=== PATIENT | female | born 1985 | race Caucasian/White ===

== ENCOUNTER → 2016-03-06 | Outpatient (CLI) | payer OTHER | END | disposition home or self-care (01) | LOC: C.PATHSPEC 17:47 | PROVIDERS: ATTEND Obstetrics & Gynecology | DX: N87.0 Mild cervical dysplasia (principal); Z87.410 Personal history of cervical dysplasia ==

== ENCOUNTER → 2016-03-15 | Outpatient (CLI) | payer OTHER ==
[2016-03-18 21:14] LABS: CHLAMYDIA TRACH RNA*** NOT DETECTED (NOT DETECTED); GC (NEIS GONORRHOEAE)RNA** NOT DETECTED (NOT DETECTED)
== END | disposition home or self-care (01) ==
LOC: C.LABSPEC 16:15
PROVIDERS: ATTEND Obstetrics & Gynecology
DX: Z11.3 Encounter for screening for infections with a predominantly sexual mode of transmission (principal)

== ENCOUNTER → 2016-11-08 | Outpatient (CLI) | payer OTHER | END | disposition home or self-care (01) | LOC: C.PAPS 09:55 | PROVIDERS: ATTEND Obstetrics & Gynecology | DX: Z12.4 Encounter for screening for malignant neoplasm of cervix (principal) ==

== ENCOUNTER → 2017-01-22 | Outpatient (CLI) | payer OTHER | END | disposition home or self-care (01) | LOC: C.PATHSPEC 17:36 | PROVIDERS: ATTEND Obstetrics & Gynecology | DX: B07.9 Viral wart, unspecified (principal) ==

== ENCOUNTER 2021-08-05 19:09 | Inpatient (IN) ==
[2021-08-05] MEDS ORDERED: OXYTOCIN 30 UNITS/500 ML BAG IV PRN (19:42)
[2021-08-05] MEDS ORDERED: PENICILLIN G POTASSIUM 6 MU in DEXTROSE 5% 250 ML IV STA (19:42)
[2021-08-05] MEDS ORDERED: fentaNYL citrate 100 MCG/2 ML VIAL ONE (19:47)
[2021-08-05] MEDS ORDERED: SODIUM CHLORIDE 0.9% INJ 10 ML VIAL ONE (19:47)
[2021-08-05] MEDS ORDERED: ePHEDrine sulfate 50 MG/ML AMP ONE (19:47)
[2021-08-05] MEDS ORDERED: BUPIVACAINE 0.25% 30 ML VIAL ONE (19:48)
[2021-08-05] MEDS ORDERED: fentaNYL 2MCG/ML ROPIVACAINE 1.25MG/ML 100 ML BAG EPI ONE (19:48)
[2021-08-05] MEDS: LACTATED RINGER'S 1,000 ML IV PRN (19:50)
[2021-08-05 20:17] LABS: Hematocrit (blood only) 40.2 % (37-47); Mean Corpuscular Hemoglobin 30.6 pg (25-34); Mean Corpuscular Hgb Conc 34.8 g/dL (32-36); Mean Platelet Volume 10.6 fL (7.4-10.4); Platelet Count 213 K/uL (130-400); RDW Coefficient of Variation 13.1 % (11.5-14.5); RDW Standard Deviation 41.8 fL (36.4-46.3); Red Blood Count 4.57 M/uL (4.2-5.4); White Blood Count 15.59 K/uL (4.8-10.8)
[2021-08-05] MEDS ORDERED: ONDANSETRON INJ 2 MG/ML 2 ML VIAL IV PRN ×2 (20:35→20:37)
[2021-08-05] MEDS ORDERED: fentaNYL 2MCG/ML ROPIVACAINE 1.25MG/ML 100 ML BAG EPI PRN (20:37)
[2021-08-05] MEDS ORDERED: diphenhydrAMINE 50 MG/ML VIAL IV PRN (20:37)
[2021-08-05] MEDS ORDERED: NALOXONE HCL 1 MG in SODIUM CHLORIDE 0.9% 1000ML 1,000 ML IV PRN (20:37)
[2021-08-05] MEDS ORDERED: ePHEDrine sulfate 50 MG/ML AMP IV PRN (20:37)
[2021-08-05] MEDS ORDERED: NALOXONE HCL 0.4 MG/1 ML VIAL/CARP IV PRN (20:37)
[2021-08-05] MEDS ORDERED: NALBUPHINE HCL INJ 10 MG/ML AMP IV PRN (20:37)
--- NOTE | 2021-08-05 20:38 | Anesthesiology Consultation ---
Date of Service August 05, 2021 Assessment & Plan ASA ASA2 Proposed Anesthesia Anesthesia Type: Labor Epidural Risk / Benefits Reviewed With: PT / POA / Parent / Guardian, Accepts Plan and Informed Consent Obtained History Height/Weight Height: 5 ft 2 in Weight: 80.286 kg Allergies Allergy/AdvReac Type Severity Reaction Status Date / Time minocycline Allergy Verified 08/03/21 09:32 Medications Home Medications Medication Instructions Recorded Confirmed Last Taken prenat.vits,sigifredo,wkk-[id number]-mnfgq 1 tab PO DAILY 11/23/20 08/05/21 08/05/21 Active Medications Generic Name Dose Route Start Last Admin Trade Name Freq PRN Reason Stop Dose Admin Lactated Ringer's 1,000 mls @ 125 mls/hr 08/05/21 19:42 08/05/21 20:20 Lr IV 08/07/21 19:41 125 mls/hr .Q8H PRN Infusion L&D Protocol Protocol Past Medical History Medical History History of chicken pox Mild cervical dysplasia Exercise / Class Metabolic Activity II 4-5 Yardwork/Stairs/Walk up hill Past Family History Family History Grandmother (Paternal) Colorectal cancer Father Heart disease Sister Endometriosis Jannet's thyroiditis Grandfather (Maternal) Myocardial infarction Grandfather (Paternal) Myocardial infarction Grandmother (Maternal) Thyroid disease Other Dyslipidemia Hypertension Denies family history of Ovarian cancer Breast cancer Past Surgical History Surgical History H/O colposcopy with cervical biopsy 2017 mona 1 History of oral surgery Tooth extraction History of tonsillectomy Past Anesthesia History No Hx of Anesthesia Complications and No Family Hx of Anesthesia Complications History of PONV No Hx of PONV and No Hx of Motion Sickness Social History Smoking Status: Former smoker Hx Alcohol Use: No Hx Substance Use: No Review of Systems denies fever/cough/ colds/ chest pain/ SOB/ FRANCESCA denies FRANCESCA Physical Exam Vital Signs Last Vital Signs Temp 36.4 C L 08/05/21 19:54 Pulse 109 H 08/05/21 20:57 Resp 18 08/05/21 19:54 BP 124/66 08/05/21 20:57 Pulse Ox 100 08/05/21 20:57 ENMT Mouth: no TMJ abnormality and no dentition abnormality Thyromental Distance: > or= 3.5 Finger Breadths Mallampati Class: II Neck neck extension not limited Respiratory normal respiratory effort; no respiratory distress Auscultation: lungs clear to auscultation bilaterally Cardiovascular Rate/Rhythm: regular rate and regular rhythm Neurologic moves all extremities Psychiatric Orientation: alert and oriented x 3 Testing Laboratory Results 08/05/21 20:05
--- NOTE | 2021-08-05 20:47 | History & Physical Report ---
Date of Service August 05, 2021 Assessment & Plan (1) Active labor: Plan: 35 y/o G1 at 39 wga in labor and srom VSS Fetus cat 1 Labor - expectant management GBS +, pcn ordered epidural prn Admission and Anticipated Discharge Date Admission Date: August 05, 2021 History of Present Illness Chief Complaint: Labor Primary Care Provider: Lisa Jamarcus Millan MD 35 y/o G1 at 39 wga presents w/ c/o ctx and LOF. +FM; denies VB. 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 neg cyto/other HPV+ denies hx STIs Allergies Allergy/AdvReac Type Severity Reaction Status Date / Time minocycline Allergy Verified 08/03/21 09:32 Home Medications Medication Instructions Recorded Confirmed Type prenat.vits,sigifredo,hla-htpu-syymc 1 tab PO DAILY 11/23/20 08/05/21 History Patient History Medical History (Updated 08/05/21 @ 20:46 by Sarah Wells MD) History of chicken pox Mild cervical dysplasia Surgical History H/O colposcopy with cervical biopsy History of oral surgery History of tonsillectomy Family History (Updated 12/25/20 @ 09:01 by Zehra Godinez) Grandmother (Paternal) Colorectal cancer Father Heart disease Sister Endometriosis Jannet's thyroiditis Grandfather (Maternal) Myocardial infarction Grandfather (Paternal) Myocardial infarction Grandmother (Maternal) Thyroid disease Other Dyslipidemia Hypertension Denies family history of Ovarian cancer Breast cancer Social History (Updated 12/25/20 @ 09:18 by Zehra Godinez) Smoking Status: Former smoker Hx Alcohol Use: No Hx Substance Use: No Preferred Language: [place] Communication Ability: Effective 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 Other Information That Helps Us Care for You: No Feels Safe at Home: Yes Safety Concerns: Feels Safe At This Time Physical Exam Genitourinary: OB Exam Abdomen: + estimated weight (8-9) OB Exam Monitor Tracing: + external FHT monitor used, + external uterine monitor used (q2-3) and + category I (130/mod/+accel/-decel) 5/100/0, vertex by nursing, grossly ruptured Results & Data ([facility]) Vital Signs (Past 12 Hours) Vital Signs Temp Pulse Resp BP 08/05/21 19:54 97.5 F L 79 18 130/80 Laboratory Results OB Labs: Blood Type B Positive 01/01/21 Antibody Screen NEGATIVE 01/01/21 Hemoglobin 13.4 g/dL (12.0-16.0) 05/25/21 Hematocrit 39.9 % (37-47) 05/25/21 Mean Corpuscular Volume 86.9 fL (80-100) 01/01/21 Platelet Count 366 K/uL (130-400) 01/01/21 Rubella IgG Antibody Immune (Immune) 01/01/21 Rapid Plasma Reagin Nonreactive (Nonreactive) 01/01/21 HIV (1&2) Ab and P24 Ag, 4th Gener Neg (Neg) 01/01/21 Maternal Serum Alpha Fetoprotein 47.6 ng/mL 03/01/21 OB Optional Labs: Chlamydia trachomatis RNA NOT DETECTED (NOT DETECTED) 01/01/21 Neisseria gonorrhoeae RNA NOT DETECTED (NOT DETECTED) 01/01/21 Alpha Fetoprotein Triple Screen SEE NOTE 03/01/21 Labs Reviewed: cf/sma neg smp cfDNA low risk smp msafp neg smp declines 16wk glucola Diagnostic Findings posterior plac Coding Level of Care Code None Diagnoses Active labor
[2021-08-06] MEDS: PENICILLIN G POTASSIUM 3 MU in DEXTROSE 5% 100 ML IV PRN ×3 (00:11→08:39)
[2021-08-06] MEDS: LACTATED RINGER'S 1,000 ML IV PRN ×2 (00:12→08:00)
[2021-08-06] MEDS ORDERED: CITRIC ACID/SODIUM CITRATE 15 ML UDC PO SCH (06:00)
[2021-08-06] MEDS ORDERED: OXYTOCIN 30 UNITS/500 ML BAG IV PRN (07:45)
--- NOTE | 2021-08-06 10:31 | Labor Progress Brief Note ---
Date of Service August 06, 2021 Subjective Patient actively pushing for around an hour, with contractions still only every 3-5min despite use of pitocin. Can feel pressure with contractions and making excellent effort. Assessment & Plan (1) Active labor: Plan: Nullip at 1 hour in second stage with limited progress, but fetus is OP. When I entered the room I also found patient pushing with a sheet wrapped around her knees holding them tightly together. This was a position suggested by her nurse, and was not working well for this particular patient in my opinion. After resuming open-knee pushes there was significantly better descent of the presenting part with the subsequent push. Would recommend titrating pitocin upwards to provide closer contractions and more efficient pushing, open-pelvis pushing positions, and as FHT are category 1 can continue pushing efforts. Patient has good energy and feels able to continue. Admission and Anticipated Discharge Date Admission Date: August 05, 2021 Physical Exam Genitourinary: position feels DOP. Station still 0 to +1 with push FHT Cat 1 Goodell Q3-5 Fluid clear, patient afebrile Pit @ 5 Results & Data ([facility]) Vital Signs (Past 12 Hours) Vital Signs Temp Pulse Resp BP Pulse Ox 08/06/21 10:23 104 H 98 08/06/21 10:18 103 H 97 08/06/21 10:13 107 H 100 08/06/21 10:10 102 H 93 08/06/21 10:08 109 H 76 L 08/06/21 10:05 106 H 90 08/06/21 10:03 100 H 98 08/06/21 09:58 100 H 97 08/06/21 09:57 106 H 80 L 08/06/21 09:56 105 H 120/55 L 08/06/21 09:53 107 H 97 08/06/21 09:51 108 H 81 L 08/06/21 09:48 107 H 96 08/06/21 09:46 107 H 79 L 08/06/21 09:43 100 H 98 08/06/21 09:42 100 H 116/53 L 08/06/21 09:38 117 H 97 08/06/21 09:36 102 H 87 L 08/06/21 09:33 105 H 97 08/06/21 09:28 104 H 97 08/06/21 09:26 123 H 127/69 06/27/22 09:25 130 H 92 08/06/21 09:23 100 H 98 08/06/21 09:18 129 H 100 08/06/21 09:13 113 H 126/60 99 08/06/21 09:08 101 H 99 08/06/21 09:03 117 H 99 08/06/21 09:00 98.4 F 08/06/21 08:58 121 H 100 08/06/21 08:53 122 H 99 08/06/21 08:48 100 H 99 08/06/21 08:43 100 H 99 08/06/21 08:41 102 H 114/57 L 08/06/21 08:38 104 H 100 08/06/21 08:33 102 H 99 08/06/21 08:28 108 H 100 08/06/21 08:27 105 H 102/50 L 90 08/06/21 08:23 105 H 100 08/06/21 08:18 110 H 99 08/06/21 08:13 108 H 98 08/06/21 08:11 105 H 113/56 L 08/06/21 08:08 106 H 99 08/06/21 08:03 95 H 100 08/06/21 07:58 123 H 100 08/06/21 07:53 106 H 100 08/06/21 07:48 103 H 98 08/06/21 07:43 99 H 96 08/06/21 07:42 96 H 105/50 L 08/06/21 07:38 100 H 97 08/06/21 07:33 98 H 96 08/06/21 07:28 98 H 98 08/06/21 07:26 100 H 112/56 L 08/06/21 07:23 103 H 97 08/06/21 07:18 110 H 98 08/06/21 07:13 103 H 97 08/06/21 07:12 103 H 123/73 08/06/21 07:08 104 H 97 08/06/21 07:05 97.9 F 08/06/21 07:03 106 H 99 08/06/21 06:58 102 H 100 08/06/21 06:56 108 H 125/69 08/06/21 06:53 99 H 97 08/06/21 06:48 112 H 97 08/06/21 06:43 101 H 97 08/06/21 06:42 102 H 132/75 08/06/21 06:38 101 H 97 08/06/21 06:33 96 H 99 08/06/21 06:30 101 H 89 L 08/06/21 06:28 106 H 98 08/06/21 06:27 102 H 126/69 08/06/21 06:23 103 H 98 08/06/21 06:18 104 H 97 08/06/21 06:13 99 H 97 08/06/21 06:11 104 H 113/59 L 08/06/21 06:08 103 H 96 08/06/21 06:03 102 H 97 08/06/21 05:58 98 H 99 08/06/21 05:56 108 H 123/64 08/06/21 05:53 111 H 100 08/06/21 05:48 121 H 99 08/06/21 05:43 116 H 98 08/06/21 05:42 111 H 134/104 H 90 08/06/21 05:38 114 H 98 08/06/21 05:33 110 H 99 08/06/21 05:28 103 H 99 08/06/21 05:27 101 H 118/67 08/06/21 05:23 106 H 100 08/06/21 05:18 116 H 100 08/06/21 05:13 109 H 100 08/06/21 05:12 98.1 F 113 H 16 117/72 08/06/21 05:08 104 H 100 08/06/21 05:03 108 H 99 08/06/21 04:58 114 H 99 08/06/21 04:57 108 H 131/60 08/06/21 04:56 121 H 92 08/06/21 04:53 109 H 100 08/06/21 04:48 117 H 100 08/06/21 04:43 116 H 98 08/06/21 04:38 110 H 99 08/06/21 04:33 104 H 99 08/06/21 04:30 18 08/06/21 04:28 107 H 100 08/06/21 04:26 114 H 120/69 08/06/21 04:23 107 H 98 08/06/21 04:18 105 H 98 08/06/21 04:13 110 H 99 08/06/21 04:12 105 H 135/75 0622 04:08 113 H 99 08/06/21 04:03 108 H 100 08/06/21 03:58 108 H 98 08/06/21 03:56 109 H 121/67 08/06/21 03:53 109 H 98 08/06/21 03:48 118 H 98 08/06/21 03:43 108 H 100 08/06/21 03:38 106 H 100 08/06/21 03:33 99 H 98 08/06/21 03:28 103 H 97 08/06/21 03:27 99 H 119/69 08/06/21 03:23 102 H 97 08/06/21 03:18 104 H 97 08/06/21 03:13 94 H 121/71 98 08/06/21 03:08 102 H 97 08/06/21 03:05 97.9 F 16 08/06/21 03:03 98 H 99 08/06/21 02:58 106 H 99 08/06/21 02:56 100 H 124/73 08/06/21 02:53 112 H 99 08/06/21 02:48 103 H 98 08/06/21 02:43 99 H 96 08/06/21 02:42 93 H 117/58 L 08/06/21 02:38 102 H 97 08/06/21 02:33 98 H 95 08/06/21 02:28 100 H 97 08/06/21 02:26 96 H 114/58 L 08/06/21 02:23 101 H 96 08/06/21 02:18 95 H 97 08/06/21 02:13 100 H 96 08/06/21 02:12 95 H 118/58 L 08/06/21 02:08 101 H 95 08/06/21 02:06 101 H 94 08/06/21 02:03 96 H 95 08/06/21 01:58 98 H 97 08/06/21 01:57 93 H 109/55 L 08/06/21 01:53 97 H 96 08/06/21 01:48 100 H 97 08/06/21 01:43 93 H 97 08/06/21 01:42 96 H 114/58 L 08/06/21 01:38 111 H 95 08/06/21 01:33 100 H 96 08/06/21 01:28 96 H 97 08/06/21 01:26 108 H 118/63 08/06/21 01:23 96 H 98 08/06/21 01:18 101 H 97 08/06/21 01:14 109 H 93 08/06/21 01:13 110 H 98 08/06/21 01:11 98.2 F 107 H 16 130/71 08/06/21 01:08 104 H 97 08/06/21 01:05 111 H 94 08/06/21 01:03 110 H 98 08/06/21 00:58 100 H 97 08/06/21 00:57 105 H 131/71 08/06/21 00:53 101 H 97 08/06/21 00:48 100 H 96 08/06/21 00:43 105 H 97 08/06/21 00:41 106 H 127/74 08/06/21 00:38 102 H 97 08/06/21 00:33 106 H 99 08/06/21 00:28 107 H 99 08/06/21 00:27 102 H 130/72 08/06/21 00:23 98 H 99 08/06/21 00:18 102 H 100 08/06/21 00:13 106 H 99 08/06/21 00:12 108 H 126/75 08/06/21 00:08 110 H 98 08/06/21 00:03 101 H 96 08/05/21 23:58 104 H 97 08/05/21 23:57 100 H 125/68 08/05/21 23:53 97 H 97 08/05/21 23:48 97 H 96 08/05/21 23:43 92 H 97 08/05/21 23:42 100 H 127/71 08/05/21 23:38 100 H 97 08/05/21 23:33 98 H 96 08/05/21 23:28 94 H 97 08/05/21 23:26 95 H 119/68 08/05/21 23:23 96 H 98 08/05/21 23:18 92 H 99 08/05/21 23:13 97 H 99 08/05/21 23:12 99 H 123/71 08/05/21 23:08 101 H 99 08/05/21 23:03 98.1 F 98 H 16 99 08/05/21 22:58 103 H 100 08/05/21 22:57 100 H 118/69 08/05/21 22:53 105 H 99 08/05/21 22:48 110 H 99 08/05/21 22:43 100 H 99 08/05/21 22:42 100 H 113/68 08/05/21 22:38 103 H 100 08/05/21 22:33 98 H 99 08/05/21 22:28 97 H 99 08/05/21 22:26 105 H 112/65 Coding Level of Care Code None Diagnoses Active labor
[2021-08-06] MEDS ORDERED: LIDOCAINE 2%/EPINEPHRINE 1:200,000 20 ML SDV ONE (11:34)
[2021-08-06] MEDS ORDERED: ceFAZolin 2000MG 2,000 MG/15 ML SYR IV ONE (11:37)
[2021-08-06] MEDS ORDERED: CITRIC ACID/SODIUM CITRATE 15 ML UDC ONE (11:38)
--- NOTE | 2021-08-06 11:39 | Labor Progress Brief Note ---
Date of Service August 06, 2021 Subjective Comfortable with epidural, feeling pressure with contractions / pushes Assessment & Plan (1) Failure of descent in labor, delivered, current hospitalization: Plan: No downward progress despite 2 hours of good maternal pushing effort. Good FHT. Counseled on options of continued pushing vs convert to . There has been NO descent and I suspect CPD; discussed option to continue though I don't truly think it will change the outcome in the end. Mom and FOB agreeable to at this time. Consent confirmed with line by line review of form. Admission and Anticipated Discharge Date Admission Date: August 05, 2021 Physical Exam Genitourinary: Fetus still OP, 0 to +1 with pushes at most. Pit @ 9 Ruma Q2-5 FHT Cat 1 Results & Data ([facility]) Vital Signs (Past 12 Hours) Vital Signs Temp Pulse Resp BP Pulse Ox 08/06/21 11:33 110 H 98 08/06/21 11:28 107 H 98 08/06/21 11:26 100 H 125/59 L 08/06/21 11:23 109 H 97 08/06/21 11:18 102 H 98 08/06/21 11:13 122 H 99 08/06/21 11:12 98.1 F 100 H 113/54 L 08/06/21 11:08 119 H 97 08/06/21 11:03 102 H 97 08/06/21 10:58 127 H 97 08/06/21 10:57 101 H 114/57 L 08/06/21 10:53 108 H 98 08/06/21 10:48 105 H 97 08/06/21 10:43 109 H 97 08/06/21 10:41 112 H 121/68 08/06/21 10:38 133 H 98 08/06/21 10:33 103 H 99 08/06/21 10:29 102 H 113/53 L 08/06/21 10:28 100 H 97 08/06/21 10:26 118 H 92 08/06/21 10:23 104 H 98 08/06/21 10:18 103 H 97 08/06/21 10:13 107 H 100 08/06/21 10:10 102 H 93 08/06/21 10:08 109 H 76 L 08/06/21 10:05 106 H 90 08/06/21 10:03 100 H 98 08/06/21 09:58 100 H 97 08/06/21 09:57 106 H 80 L 08/06/21 09:56 105 H 120/55 L 08/06/21 09:53 107 H 97 08/06/21 09:51 108 H 81 L 08/06/21 09:48 107 H 96 08/06/21 09:46 107 H 79 L 08/06/21 09:43 100 H 98 08/06/21 09:42 100 H 116/53 L 08/06/21 09:38 117 H 97 08/06/21 09:36 102 H 87 L 08/06/21 09:33 105 H 97 08/06/21 09:28 104 H 97 08/06/21 09:26 123 H 127/69 08/06/21 09:25 130 H 92 08/06/21 09:23 100 H 98 08/06/21 09:18 129 H 100 08/06/21 09:13 113 H 126/60 99 08/06/21 09:08 101 H 99 08/06/21 09:03 117 H 99 08/06/21 09:00 98.4 F 08/06/21 08:58 121 H 100 08/06/21 08:53 122 H 99 08/06/21 08:48 100 H 99 08/06/21 08:43 100 H 99 08/06/21 08:41 102 H 114/57 L 08/06/21 08:38 104 H 100 08/06/21 08:33 102 H 99 08/06/21 08:28 108 H 100 08/06/21 08:27 105 H 102/50 L 90 08/06/21 08:23 105 H 100 08/06/21 08:18 110 H 99 08/06/21 08:13 108 H 98 08/06/21 08:11 105 H 113/56 L 08/06/21 08:08 106 H 99 08/06/21 08:03 95 H 100 08/06/21 07:58 123 H 100 08/06/21 07:53 106 H 100 08/06/21 07:48 103 H 98 08/06/21 07:43 99 H 96 08/06/21 07:42 96 H 105/50 L 08/06/21 07:38 100 H 97 08/06/21 07:33 98 H 96 06/27/22 07:28 98 H 98 08/06/21 07:26 100 H 112/56 L 08/06/21 07:23 103 H 97 08/06/21 07:18 110 H 98 08/06/21 07:13 103 H 97 08/06/21 07:12 103 H 123/73 08/06/21 07:08 104 H 97 08/06/21 07:05 97.9 F 08/06/21 07:03 106 H 99 08/06/21 06:58 102 H 100 08/06/21 06:56 108 H 125/69 08/06/21 06:53 99 H 97 08/06/21 06:48 112 H 97 08/06/21 06:43 101 H 97 08/06/21 06:42 102 H 132/75 08/06/21 06:38 101 H 97 08/06/21 06:33 96 H 99 08/06/21 06:30 101 H 89 L 08/06/21 06:28 106 H 98 08/06/21 06:27 102 H 126/69 08/06/21 06:23 103 H 98 08/06/21 06:18 104 H 97 08/06/21 06:13 99 H 97 08/06/21 06:11 104 H 113/59 L 08/06/21 06:08 103 H 96 08/06/21 06:03 102 H 97 08/06/21 05:58 98 H 99 08/06/21 05:56 108 H 123/64 08/06/21 05:53 111 H 100 08/06/21 05:48 121 H 99 08/06/21 05:43 116 H 98 08/06/21 05:42 111 H 134/104 H 90 08/06/21 05:38 114 H 98 08/06/21 05:33 110 H 99 08/06/21 05:28 103 H 99 08/06/21 05:27 101 H 118/67 08/06/21 05:23 106 H 100 08/06/21 05:18 116 H 100 08/06/21 05:13 109 H 100 08/06/21 05:12 98.1 F 113 H 16 117/72 08/06/21 05:08 104 H 100 08/06/21 05:03 108 H 99 08/06/21 04:58 114 H 99 08/06/21 04:57 108 H 131/60 08/06/21 04:56 121 H 92 08/06/21 04:53 109 H 100 08/06/21 04:48 117 H 100 08/06/21 04:43 116 H 98 08/06/21 04:38 110 H 99 08/06/21 04:33 104 H 99 08/06/21 04:30 18 08/06/21 04:28 107 H 100 08/06/21 04:26 114 H 120/69 08/06/21 04:23 107 H 98 08/06/21 04:18 105 H 98 08/06/21 04:13 110 H 99 08/06/21 04:12 105 H 135/75 08/06/21 04:08 113 H 99 08/06/21 04:03 108 H 100 08/06/21 03:58 108 H 98 08/06/21 03:56 109 H 121/67 08/06/21 03:53 109 H 98 08/06/21 03:48 118 H 98 08/06/21 03:43 108 H 100 08/06/21 03:38 106 H 100 08/06/21 03:33 99 H 98 08/06/21 03:28 103 H 97 08/06/21 03:27 99 H 119/69 08/06/21 03:23 102 H 97 08/06/21 03:18 104 H 97 08/06/21 03:13 94 H 121/71 98 08/06/21 03:08 102 H 97 08/06/21 03:05 97.9 F 16 08/06/21 03:03 98 H 99 08/06/21 02:58 106 H 99 08/06/21 02:56 100 H 124/73 08/06/21 02:53 112 H 99 08/06/21 02:48 103 H 98 08/06/21 02:43 99 H 96 08/06/21 02:42 93 H 117/58 L 08/06/21 02:38 102 H 97 08/06/21 02:33 98 H 95 08/06/21 02:28 100 H 97 08/06/21 02:26 96 H 114/58 L 08/06/21 02:23 101 H 96 08/06/21 02:18 95 H 97 08/06/21 02:13 100 H 96 08/06/21 02:12 95 H 118/58 L 08/06/21 02:08 101 H 95 08/06/21 02:06 101 H 94 08/06/21 02:03 96 H 95 08/06/21 01:58 98 H 97 08/06/21 01:57 93 H 109/55 L 08/06/21 01:53 97 H 96 08/06/21 01:48 100 H 97 08/06/21 01:43 93 H 97 08/06/21 01:42 96 H 114/58 L 08/06/21 01:38 111 H 95 08/06/21 01:33 100 H 96 08/06/21 01:28 96 H 97 08/06/21 01:26 108 H 118/63 08/06/21 01:23 96 H 98 08/06/21 01:18 101 H 97 08/06/21 01:14 109 H 93 08/06/21 01:13 110 H 98 08/06/21 01:11 98.2 F 107 H 16 130/71 08/06/21 01:08 104 H 97 08/06/21 01:05 111 H 94 08/06/21 01:03 110 H 98 08/06/21 00:58 100 H 97 08/06/21 00:57 105 H 131/71 08/06/21 00:53 101 H 97 08/06/21 00:48 100 H 96 08/06/21 00:43 105 H 97 08/06/21 00:41 106 H 127/74 08/06/21 00:38 102 H 97 08/06/21 00:33 106 H 99 08/06/21 00:28 107 H 99 08/06/21 00:27 102 H 130/72 08/06/21 00:23 98 H 99 08/06/21 00:18 102 H 100 08/06/21 00:13 106 H 99 08/06/21 00:12 108 H 126/75 08/06/21 00:08 110 H 98 08/06/21 00:03 101 H 96 08/05/21 23:58 104 H 97 08/05/21 23:57 100 H 125/68 08/05/21 23:53 97 H 97 08/05/21 23:48 97 H 96 06/26/22 23:43 92 H 97 08/05/21 23:42 100 H 127/71 08/05/21 23:38 100 H 97 Coding Level of Care Code None Diagnoses Failure of descent in labor, delivered, current hospitalization O62.2
[2021-08-06] MEDS ORDERED: LACTATED RINGER'S 1,000 ML IV SCH ×2 (11:45→13:02)
[2021-08-06] MEDS ORDERED: diphenhydrAMINE 50 MG/ML VIAL IV PRN (12:12)
[2021-08-06] MEDS ORDERED: NALOXONE HCL 1 MG in SODIUM CHLORIDE 0.9% 1000ML 1,000 ML IV PRN (12:12)
[2021-08-06] MEDS ORDERED: METOCLOPRAMIDE HCL 20 MG in SODIUM CHLORIDE 0.9% 50 ML IV PRN (12:12)
[2021-08-06] MEDS ORDERED: NALOXONE HCL 0.4 MG/1 ML VIAL/CARP IV PRN ×2 (12:12→13:02)
[2021-08-06] MEDS ORDERED: NALBUPHINE HCL INJ 10 MG/ML AMP IV PRN (12:12)
[2021-08-06] MEDS ORDERED: NALOXONE HCL 0.08 MG in SYRINGE 1.8 ML IV PRN (12:12)
[2021-08-06] MEDS ORDERED: PROMETHAZINE HCL 25 MG in SODIUM CHLORIDE 0.9% 50 ML IV PRN (12:12)
[2021-08-06] MEDS ORDERED: LACTATED RINGER'S 500 ML IV PRN (12:12)
[2021-08-06] MEDS ORDERED: HYDROmorphone INJ 0.5 MG/0.5 ML SYR IV PRN (12:12)
[2021-08-06] MEDS ORDERED: ONDANSETRON INJ 2 MG/ML 2 ML VIAL IV PRN ×3 (12:12→13:02)
[2021-08-06] MEDS ORDERED: ePHEDrine sulfate 50 MG/ML AMP IV PRN ×2 (12:12→12:54)
[2021-08-06] MEDS ORDERED: MoRPHine SULFATE PF 1 MG/ML 10 ML AMP/VIAL INT SPINAL ONE (12:12)
[2021-08-06] MEDS ORDERED: SODIUM CHLORIDE 0.9% 1000ML 1,000 ML IV SCH ×2 (12:15→13:02)
[2021-08-06] MEDS ORDERED: NO NARCOTICS OR SEDATIVES SCH (12:15)
--- NOTE | 2021-08-06 12:31 | Operative Report ---
PG Post Operative Report Pre & Post Diagnosis Operation Date: 08/06/21 11:30 Pre-Op Diagnosis: Primary Section for failure to descend. Post-Op Diagnosis: Primary Section for failure to descend. I identified the patient and participated in the time-out.: Yes Procedure Operation Date: 08/06/21 11:30 Actual Procedures Primary Low Transverse Section Surgeon Ava Mcmillan MD Flow Trader CANDIDA Sharif Estimated Blood Loss 600 Findings Consistent with Post-Op Diagnosis Specimens Placenta, Cord blood Anesthesia Type Spinal Complications none Disposition Accompanied Patient To Recovery: Yes Disposition: L&D Description of Procedure The patient was placed operating table in the supine position with a leftward tilt. She was prepped and draped in standard sterile fashion. The anesthetic was tested and found to be adequate. A time-out was held, identifying correct patient, procedure, positioning and preoperative antibiotics. There were no concerns. A Pfannenstiel skin incision was made with a knife and taken down to the underlying layer of fascia. The fascia was incised in the midline with the knife and taken out laterally with scissors. The superior edge of the fascial incision was grasped, elevated and dissected off the underlying rectus both superiorly and inferiorly. The muscles were bluntly in the midline. The peritoneum was entered bluntly. The incision was then stretched. The bladder retractor was placed. The vesicouterine peritoneum was identified, entered with scissors and taken out laterally with scissors. The bladder flap was created digitally. A hysterotomy incision was created transversely in the lower uterine segment, final entry being accomplished in a blunt manner with the boom pump operator's fingers. Clear amniotic fluid was encountered. The boom pump operator's hand was used to elevate the head to the hysterotomy. The head was delivered using mild fundal pressure, and the shoulders and body followed without difficulty. The cord was clamped and cut and the was then handed off to the awaiting gerontological nurse practitioner. Cord blood was obtained. The placenta was Manually extracted. The uterus was exteriorized and cleared of all clot and debris with moistened laparotomy sponges. The hysterotomy incision was repaired in two layers, the first in a running locked layer, the second in an imbricating layer. The ovaries and tubes were seen to be normal bilaterally. The uterus was gently replaced in the abdomen, and the gutters were cleared of clot and debris. A final inspection of the hysterotomy revealed good hemostasis. The rectus muscles were allowed to reapproximate naturally. The fascia was then reapproximated with 1 Vicryl in a running nonlocked manner. The fascia was examined and found to be free of defect following closure. The subcutaneous tissue was copiously irrigated and reapproximated with 0-chromic, then the skin edges were closed with 4-0 monocryl in a subcuticular fashion. A dermabond dressing was applied. The michelle was found to be draining clear yellow urine at completion of the procedure. I attest to the content of the Intraoperative Record and any orders documented therein. Any exceptions are noted below. I attest to the content of the Intraoperative Record and any orders documented therein. Any exceptions are noted below. OB Procedure Charges [id number]
[2021-08-06] MEDS ORDERED: PROMETHAZINE HCL 12.5 MG in SODIUM CHLORIDE 0.9% 50 ML IV PRN (12:54)
[2021-08-06] MEDS ORDERED: METOCLOPRAMIDE HCL INJ 5 MG/ML 2 ML VIAL IV PRN (12:54)
[2021-08-06] MEDS ORDERED: ATROPINE SULFATE 0.1 MG/ML 10ML SYR IV PRN (12:54)
[2021-08-06] MEDS ORDERED: HYDROmorphone INJ 2 MG/ML SYR/VIAL IV PRN (12:54)
[2021-08-06] MEDS ORDERED: HYDROCORTISONE ACETATE 25 MG SUPP PR PRN (13:02)
[2021-08-06] MEDS ORDERED: OXYTOCIN 30 UNITS in LACTATED RINGER'S 1,000 ML IV SCH (13:02)
[2021-08-06] MEDS ORDERED: PHENYLEPHRINE HCL 10 MG/ML VIAL ONE (13:02)
[2021-08-06] MEDS ORDERED: HYDROmorphone Bolus from PCA IV STA (13:02)
[2021-08-06] MEDS ORDERED: DIPHTHERIA/TETANUS/PERTUSSIS 0.5 ML SYR/VIAL IM ONE (13:02)
[2021-08-06] MEDS ORDERED: OXYTOCIN 10 UNITS/ML 10ML VIAL ONE (13:02)
[2021-08-06] MEDS ORDERED: BENZOCAINE 20% AER SPR 82.5 GM CAN EXT PRN (13:02)
[2021-08-06] MEDS ORDERED: ePHEDrine sulfate 50 MG/ML AMP ONE (13:02)
[2021-08-06] MEDS ORDERED: MAGNESIUM HYDROXIDE SUSP 30 ML UDC PO PRN (13:02)
[2021-08-06] MEDS ORDERED: SENNA 8.6 MG TAB PO PRN (13:02)
[2021-08-06] MEDS: HYDROmorphone PCA 30 MG/30 ML IV PRN ×2 (13:35→15:25)
--- NOTE | 2021-08-06 15:44 | Anesthesiology Progress Note ---
Date of Service August 06, 2021 Anesthesia Post Procedure Vital Signs Vital Signs: Temp Pulse Resp BP Pulse Ox 08/06/21 15:00 100 H 100 08/06/21 14:55 99 H 99 08/06/21 14:50 98 H 100 08/06/21 14:45 93 H 100 08/06/21 14:42 96 H 118/63 08/06/21 14:40 97 H 99 08/06/21 14:38 36.4 C L 96 H 118/63 08/06/21 14:35 97 H 99 08/06/21 14:30 98 H 99 08/06/21 14:25 92 H 100 08/06/21 14:20 91 H 100 08/06/21 14:15 96 H 100 08/06/21 14:12 96 H 118/65 08/06/21 14:10 94 H 100 08/06/21 14:05 93 H 100 08/06/21 14:00 91 H 99 08/06/21 13:55 90 99 08/06/21 13:50 98 H 98 08/06/21 13:45 103 H 96 08/06/21 13:40 106 H 96 08/06/21 13:38 36.5 C 103 H 112/60 96 08/06/21 13:35 99 H 96 08/06/21 13:30 104 H 96 08/06/21 13:28 111 H 113/66 08/06/21 13:25 102 H 95 08/06/21 13:20 105 H 96 08/06/21 13:18 96 H 113/61 08/06/21 13:15 109 H 96 08/06/21 13:10 110 H 96 08/06/21 13:08 111 H 20 106/60 08/06/21 13:05 113 H 96 08/06/21 13:00 105 H 96 08/06/21 12:58 103 H 18 95/53 L 08/06/21 12:56 108 H 93/46 L 08/06/21 12:55 109 H 96 08/06/21 12:50 105 H 97 08/06/21 12:48 18 08/06/21 12:45 97 H 96 08/06/21 12:42 97 H 99/48 L 08/06/21 12:40 105 H 96 08/06/21 12:38 36.5 C 103 H 18 157/104 H 08/06/21 11:33 110 H 98 08/06/21 11:28 107 H 98 08/06/21 11:26 100 H 125/59 L 08/06/21 11:23 109 H 97 08/06/21 11:18 102 H 98 08/06/21 11:13 122 H 99 08/06/21 11:12 36.7 C 100 H 113/54 L 08/06/21 11:08 119 H 97 08/06/21 11:03 102 H 97 08/06/21 10:58 127 H 97 08/06/21 10:57 101 H 114/57 L 08/06/21 10:53 108 H 98 08/06/21 10:48 105 H 97 08/06/21 10:43 109 H 97 08/06/21 10:41 112 H 121/68 08/06/21 10:38 133 H 98 08/06/21 10:33 103 H 99 08/06/21 10:29 102 H 113/53 L 08/06/21 10:28 100 H 97 08/06/21 10:26 118 H 92 08/06/21 10:23 104 H 98 08/06/21 10:18 103 H 97 08/06/21 10:13 107 H 100 08/06/21 10:10 102 H 93 08/06/21 10:08 109 H 76 L 08/06/21 10:05 106 H 90 08/06/21 10:03 100 H 98 08/06/21 09:58 100 H 97 08/06/21 09:57 106 H 80 L 08/06/21 09:56 105 H 120/55 L 08/06/21 09:53 107 H 97 08/06/21 09:51 108 H 81 L 08/06/21 09:48 107 H 96 08/06/21 09:46 107 H 79 L 08/06/21 09:43 100 H 98 08/06/21 09:42 100 H 116/53 L 08/06/21 09:38 117 H 97 08/06/21 09:36 102 H 87 L 08/06/21 09:33 105 H 97 08/06/21 09:28 104 H 97 08/06/21 09:26 123 H 127/69 08/06/21 09:25 130 H 92 08/06/21 09:23 100 H 98 08/06/21 09:18 129 H 100 08/06/21 09:13 113 H 126/60 99 08/06/21 09:08 101 H 99 08/06/21 09:03 117 H 99 08/06/21 09:00 36.9 C 08/06/21 08:58 121 H 100 08/06/21 08:53 122 H 99 08/06/21 08:48 100 H 99 08/06/21 08:43 100 H 99 08/06/21 08:41 102 H 114/57 L 08/06/21 08:38 104 H 100 08/06/21 08:33 102 H 99 08/06/21 08:28 108 H 100 08/06/21 08:27 105 H 102/50 L 90 08/06/21 08:23 105 H 100 08/06/21 08:18 110 H 99 08/06/21 08:13 108 H 98 08/06/21 08:11 105 H 113/56 L 08/06/21 08:08 106 H 99 08/06/21 08:03 95 H 100 08/06/21 07:58 123 H 100 08/06/21 07:53 106 H 100 08/06/21 07:48 103 H 98 08/06/21 07:43 99 H 96 08/06/21 07:42 96 H 105/50 L 08/06/21 07:38 100 H 97 08/06/21 07:33 98 H 96 08/06/21 07:28 98 H 98 08/06/21 07:26 100 H 112/56 L 08/06/21 07:23 103 H 97 08/06/21 07:18 110 H 98 08/06/21 07:13 103 H 97 08/06/21 07:12 103 H 123/73 08/06/21 07:08 104 H 97 08/06/21 07:05 36.6 C 08/06/21 07:03 106 H 99 08/06/21 06:58 102 H 100 08/06/21 06:56 108 H 125/69 08/06/21 06:53 99 H 97 08/06/21 06:48 112 H 97 08/06/21 06:43 101 H 97 08/06/21 06:42 102 H 132/75 08/06/21 06:38 101 H 97 08/06/21 06:33 96 H 99 08/06/21 06:30 101 H 89 L 08/06/21 06:28 106 H 98 08/06/21 06:27 102 H 126/69 08/06/21 06:23 103 H 98 08/06/21 06:18 104 H 97 08/06/21 06:13 99 H 97 08/06/21 06:11 104 H 113/59 L 08/06/21 06:08 103 H 96 08/06/21 06:03 102 H 97 08/06/21 05:58 98 H 99 08/06/21 05:56 108 H 123/64 08/06/21 05:53 111 H 100 08/06/21 05:48 121 H 99 08/06/21 05:43 116 H 98 08/06/21 05:42 111 H 134/104 H 90 08/06/21 05:38 114 H 98 08/06/21 05:33 110 H 99 08/06/21 05:28 103 H 99 08/06/21 05:27 101 H 118/67 08/06/21 05:23 106 H 100 08/06/21 05:18 116 H 100 08/06/21 05:13 109 H 100 08/06/21 05:12 36.7 C 113 H 16 117/72 08/06/21 05:08 104 H 100 08/06/21 05:03 108 H 99 08/06/21 04:58 114 H 99 08/06/21 04:57 108 H 131/60 08/06/21 04:56 121 H 92 08/06/21 04:53 109 H 100 08/06/21 04:48 117 H 100 08/06/21 04:43 116 H 98 08/06/21 04:38 110 H 99 08/06/21 04:33 104 H 99 08/06/21 04:30 18 08/06/21 04:28 107 H 100 08/06/21 04:26 114 H 120/69 08/06/21 04:23 107 H 98 08/06/21 04:18 105 H 98 08/06/21 04:13 110 H 99 08/06/21 04:12 105 H 135/75 08/06/21 04:08 113 H 99 08/06/21 04:03 108 H 100 08/06/21 03:58 108 H 98 08/06/21 03:56 109 H 121/67 08/06/21 03:53 109 H 98 08/06/21 03:48 118 H 98 08/06/21 03:43 108 H 100 08/06/21 03:38 106 H 100 08/06/21 03:33 99 H 98 08/06/21 03:28 103 H 97 08/06/21 03:27 99 H 119/69 08/06/21 03:23 102 H 97 08/06/21 03:18 104 H 97 08/06/21 03:13 94 H 121/71 98 08/06/21 03:08 102 H 97 08/06/21 03:05 36.6 C 16 08/06/21 03:03 98 H 99 08/06/21 02:58 106 H 99 08/06/21 02:56 100 H 124/73 08/06/21 02:53 112 H 99 08/06/21 02:48 103 H 98 08/06/21 02:43 99 H 96 08/06/21 02:42 93 H 117/58 L 08/06/21 02:38 102 H 97 08/06/21 02:33 98 H 95 08/06/21 02:28 100 H 97 08/06/21 02:26 96 H 114/58 L 08/06/21 02:23 101 H 96 08/06/21 02:18 95 H 97 08/06/21 02:13 100 H 96 08/06/21 02:12 95 H 118/58 L 08/06/21 02:08 101 H 95 08/06/21 02:06 101 H 94 08/06/21 02:03 96 H 95 08/06/21 01:58 98 H 97 08/06/21 01:57 93 H 109/55 L 08/06/21 01:53 97 H 96 08/06/21 01:48 100 H 97 08/06/21 01:43 93 H 97 08/06/21 01:42 96 H 114/58 L 08/06/21 01:38 111 H 95 08/06/21 01:33 100 H 96 08/06/21 01:28 96 H 97 08/06/21 01:26 108 H 118/63 0622 01:23 96 H 98 08/06/21 01:18 101 H 97 08/06/21 01:14 109 H 93 08/06/21 01:13 110 H 98 08/06/21 01:11 36.8 C 107 H 16 130/71 08/06/21 01:08 104 H 97 08/06/21 01:05 111 H 94 08/06/21 01:03 110 H 98 08/06/21 00:58 100 H 97 08/06/21 00:57 105 H 131/71 08/06/21 00:53 101 H 97 08/06/21 00:48 100 H 96 08/06/21 00:43 105 H 97 08/06/21 00:41 106 H 127/74 08/06/21 00:38 102 H 97 08/06/21 00:33 106 H 99 08/06/21 00:28 107 H 99 08/06/21 00:27 102 H 130/72 08/06/21 00:23 98 H 99 08/06/21 00:18 102 H 100 08/06/21 00:13 106 H 99 08/06/21 00:12 108 H 126/75 08/06/21 00:08 110 H 98 08/06/21 00:03 101 H 96 08/05/21 23:58 104 H 97 08/05/21 23:57 100 H 125/68 08/05/21 23:53 97 H 97 08/05/21 23:48 97 H 96 08/05/21 23:43 92 H 97 08/05/21 23:42 100 H 127/71 08/05/21 23:38 100 H 97 08/05/21 23:33 98 H 96 08/05/21 23:28 94 H 97 08/05/21 23:26 95 H 119/68 08/05/21 23:23 96 H 98 08/05/21 23:18 92 H 99 08/05/21 23:13 97 H 99 08/05/21 23:12 99 H 123/71 08/05/21 23:08 101 H 99 08/05/21 23:03 36.7 C 98 H 16 99 08/05/21 22:58 103 H 100 08/05/21 22:57 100 H 118/69 08/05/21 22:53 105 H 99 06/26/22 22:48 110 H 99 08/05/21 22:43 100 H 99 08/05/21 22:42 100 H 113/68 08/05/21 22:38 103 H 100 08/05/21 22:33 98 H 99 08/05/21 22:28 97 H 99 08/05/21 22:26 105 H 112/65 08/05/21 22:23 101 H 99 08/05/21 22:18 94 H 100 08/05/21 22:13 110 H 117/65 100 08/05/21 22:07 115 H 100 08/05/21 22:02 99 H 99 08/05/21 21:57 102 H 115/61 100 08/05/21 21:52 99 H 100 08/05/21 21:47 97 H 100 08/05/21 21:42 91 H 114/64 100 08/05/21 21:37 100 H 100 08/05/21 21:32 106 H 100 08/05/21 21:29 115 H 92 08/05/21 21:27 110 H 100 08/05/21 21:26 122 H 128/65 08/05/21 21:24 114 H 111/71 08/05/21 21:22 116 H 100 08/05/21 21:21 99 H 97/52 L 08/05/21 21:19 95 H 105/59 L 08/05/21 21:17 93 H 105/61 100 08/05/21 21:15 92 H 106/61 08/05/21 21:13 98 H 106/58 L 08/05/21 21:12 92 H 100 08/05/21 21:11 98 H 107/57 L 08/05/21 21:09 96 H 105/59 L 08/05/21 21:07 93 H 108/54 L 100 08/05/21 21:06 114 H 110/57 L 08/05/21 21:04 118 H 84 L 08/05/21 21:02 113 H 100 08/05/21 21:01 125 H 135/61 08/05/21 20:59 117 H 127/67 08/05/21 20:57 109 H 124/66 100 08/05/21 20:55 106 H 123/78 08/05/21 20:53 90 128/81 08/05/21 20:52 102 H 99 08/05/21 20:50 96 H 92 08/05/21 20:47 93 H 98 08/05/21 20:42 105 H 98 08/05/21 19:54 36.4 C L 79 18 130/80 Pain Intensity Bilateral Lower Abdomen: Pain Intensity: 8 Transfer of Care Handoff Completed per policy Notes Mental Status: alert / awake / arousable and participated in evaluation Patient Amnestic to Procedure: Yes Nausea / Vomiting: adequately controlled Pain: adequately controlled Airway Patency, RR, SpO2: stable & adequate BP & HR: stable & adequate Hydration State: stable & adequate Neuraxial Anesthesia: was administered and sensory block is resolving Anesthetic Complications: no major complications apparent
[2021-08-06] MEDS: SIMETHICONE 80 MG CHEW PO SCH ×4 (17:40→20:41)
[2021-08-06] MEDS: DOCUSATE SODIUM 100 MG CAP PO SCH (20:40)
--- NOTE | 2021-08-07 05:25 | Obstetrical Progress Note ---
Date of Service August 07, 2021 Assessment & Plan Admission and Anticipated Discharge Date Admission Date: August 05, 2021 Results & Data ([facility]) Vital Signs (Past 12 Hours) Vital Signs Temp Pulse Resp BP Pulse Ox 08/07/21 03:30 36.6 C 93 H 16 116/71 97 08/07/21 00:00 36.8 C 90 18 115/68 96 08/06/21 22:00 20 100 08/06/21 21:00 18 99 08/06/21 20:00 20 100 08/06/21 19:30 36.8 C 94 H 20 119/74 99 08/06/21 19:10 18 100 08/06/21 17:40 18 100
[2021-08-07] MEDS ORDERED: diphenhydrAMINE 50 MG/ML VIAL IV PRN (06:12)
[2021-08-07] MEDS ORDERED: diphenhydrAMINE Capsule 25 MG CAP PO PRN (06:12)
[2021-08-07] MEDS ORDERED: DC INTRASPINAL MORPHINE SCH (06:12)
[2021-08-07] MEDS ORDERED: KETOROLAC 30 MG/ML VIAL IV PRN (06:12)
[2021-08-07] MEDS ORDERED: PROMETHAZINE HCL 25 MG in SODIUM CHLORIDE 0.9% 50 ML IV PRN (06:13)
[2021-08-07 07:03] LABS: Basophils # (auto) 0.02 K/uL (0-0.2); Basophils % (auto) 0.1 %; Eosinophils # (auto) 0.22 K/uL (0-0.5); Eosinophils % (auto) 1.6 %; Hematocrit (blood only) 35.7 % (37-47); Hemoglobin 11.9 g/dL (12.0-16.0); Immature Granulocytes # (auto) 0.07 K/uL (0.00-0.02); Immature Granulocytes % (auto) 0.5 %; Lymphocytes # (auto) 1.29 K/uL (1.2-3.4); Lymphocytes % (auto) 9.1 %; Mean Corpuscular Hemoglobin 29.1 pg (25-34); Mean Corpuscular Hgb Conc 33.3 g/dL (32-36); Mean Corpuscular Volume 87.3 fL (80-100); Mean Platelet Volume 10.7 fL (7.4-10.4); Monocytes # (auto) 0.92 K/uL (0.11-0.59); Monocytes % (auto) 6.5 %; Neutrophils # (auto) 11.62 K/uL (1.4-6.5); Neutrophils % (auto) 82.2 %; Platelet Count 175 K/uL (130-400); RDW Coefficient of Variation 13.5 % (11.5-14.5); RDW Standard Deviation 42.7 fL (36.4-46.3); Red Blood Count 4.09 M/uL (4.2-5.4); White Blood Count 14.14 K/uL (4.8-10.8)
[2021-08-07] MEDS ORDERED: MEPERIDINE HCL 50 MG/ML CARP IV PRN (07:51)
--- NOTE | 2021-08-07 08:01 | Obstetrical Progress Note ---
Date of Service August 07, 2021 Assessment & Plan (1) Encounter for care and examination after delivery: Plan: Patient is a 35-year-old now female who delivered via at 39 weeks gestation, postoperative day 1. -Continue routine care, will keep today -Pain not adequately controlled, will transition Dilaudid VEHICLE ASSEMBLY INSPECTOR to pushed medication by nursing as needed. -GBS positive but was treated with penicillin, B+, antibody negative, rubella immune -Hemoglobin 11.9 today -Voiding trial later today -Encouraged ambulation for after Rea catheter is removed -Encourage breast-feeding -Follow-up in [address] Mcmillan Admission and Anticipated Discharge Date Admission Date: August 05, 2021 Supervising Physician Co-Signing Physician Notes Resident Physician Supervision Note: I interviewed and examined the patient. Discussed with Dr. Medina and agree with findings and plan as documented in the note. Any exceptions or clarifications are listed here: As above, patient did not receive duramorph and was given Dilaudid VEHICLE ASSEMBLY INSPECTOR. C/O inadequate pain control overnight. Will transition off VEHICLE ASSEMBLY INSPECTOR to our typical post- pain management regimen including IV and PO narcotic options to be used as needed. Documented By: Ava Mcmillan MD, FACOG Subjective Patient is a 35-year-old now female who delivered via at 39 weeks gestation, postoperative day 1. Patient does seem uncomfortable today, unfortunately Duramorph was not given to the patient when epidural was in place. Because of this patient was put on a VEHICLE ASSEMBLY INSPECTOR with Dilaudid. Patient utilizing as frequently as she is able to. Patient still experiencing 7-8 out of 10 pain. Otherwise the patient is powering through it and breast-feeding to the best of her ability reports is overall going well and baby is latching well. Rea catheter in place and is having good urine output. No ambulation at this time due to Rea catheter but because Duramorph was not given it does not necessarily need to be in place as of right now. Otherwise patient tolerating oral intake without nausea/vomiting. Patient denies fever, chills, chest pain, shortness of breath, nausea, vomiting, or headaches at this time. No other complaints, just would like better pain control. Review of Systems Review of Systems: All systems reviewed & are unremarkable except as noted in HPI & below Physical Exam Constitutional: WD/WN, vitals as above Eyes: + anicteric sclerae Neck: normal visual inspection Respiratory: normal respiratory effort, lungs clear to auscultation Cardiovascular: RRR, no murmur, no edema Gastrointestinal (Abdomen): Inspection/Auscultation: abdomen normal to inspection Percussion/Palpation: + abdomen tender and abdomen soft Musculoskeletal: Head/Neck/Chest: head atraumatic Skin: + rash (diffuse on abdomen) Neurologic: moves all extremities Psychiatric: A+Ox3, euthymic affect Genitourinary: Uterine fundus palpated at the level of the umbilicus, firm Results & Data ([facility]) Vital Signs (Past 12 Hours) Vital Signs Temp Pulse Resp BP Pulse Ox 08/07/21 03:30 36.6 C 93 H 16 116/71 97 08/07/21 00:00 36.8 C 90 18 115/68 96 08/06/21 22:00 20 100 08/06/21 21:00 18 99 08/06/21 20:00 20 100
[2021-08-07] MEDS: SIMETHICONE 80 MG CHEW PO SCH ×4 (08:12→20:58)
[2021-08-07] MEDS: PRENATAL VITAMIN 1 TAB PO SCH (08:12)
[2021-08-07] MEDS: FERROUS SULFATE 325 MG TAB PO SCH (08:12)
[2021-08-07] MEDS: DOCUSATE SODIUM 100 MG CAP PO SCH ×2 (08:12→20:58)
[2021-08-07] MEDS: IBUPROFEN 600 MG TAB PO PRN ×3 (09:32→18:53)
[2021-08-07] MEDS: oxyCODONE/ACETAMINOPHEN 5mg/325mg TAB PO PRN ×2 (09:32→18:54)
[2021-08-08] MEDS: oxyCODONE/ACETAMINOPHEN 5mg/325mg TAB PO PRN ×2 (04:40→08:25)
[2021-08-08] MEDS: IBUPROFEN 600 MG TAB PO PRN ×4 (04:41→17:23)
--- NOTE | 2021-08-08 07:05 | Obstetrical Progress Note ---
Date of Service August 08, 2021 Assessment & Plan (1) Encounter for care and examination after delivery: stable, routine care. rh pos, ri, breast feeding. hgb pending. Day #:: 2 Subjective Ambulation: ambulating normally Voiding: no voiding problems Passing Gas:: Yes Diet Tolerance:: regular diet Lochia:: Small Feeding Type:: breast feeding having rash, bilateral lower back and back of arms and quite itchy. no pain issues. Constitutional: + as per Subjective / HPI Physical Exam Constitutional WD/WN, vitals as above Respiratory normal respiratory effort, lungs clear to auscultation Cardiovascular Rate/Rhythm: regular rate and regular rhythm Gastrointestinal (Abdomen) Inspection/Auscultation: abdomen normal to inspection Percussion/Palpation: abdomen soft Fundus firm 1cm down Musculoskeletal nt calves no edema Neurologic grossly normal Psychiatric A+Ox3, euthymic affect Results & Data ([facility]) Vital Signs (Past 12 Hours) Vital Signs Temp Pulse Resp BP 08/08/21 04:00 98.4 F 89 18 116/77 08/08/21 00:00 98.4 F 74 18 114/73 08/07/21 20:00 97.7 F 85 18 119/76
[2021-08-08 07:51] LABS: Hematocrit (blood only) 34.2 % (37-47); Hemoglobin 11.5 g/dL (12.0-16.0)
[2021-08-08] MEDS: PRENATAL VITAMIN 1 TAB PO SCH (08:24)
[2021-08-08] MEDS: DOCUSATE SODIUM 100 MG CAP PO SCH ×2 (08:24→20:46)
[2021-08-08] MEDS: FERROUS SULFATE 325 MG TAB PO SCH (08:24)
[2021-08-08] MEDS: SIMETHICONE 80 MG CHEW PO SCH ×4 (08:26→20:46)
[2021-08-08] MEDS: TRIAMCINOLONE ACET 0.5% CR 15 GM TUBE EXT PRN ×2 (11:46→16:48)
[2021-08-09] MEDS: IBUPROFEN 600 MG TAB PO PRN (06:10)
--- NOTE | 2021-08-09 08:23 | Obstetrical Progress Note ---
Date of Service August 09, 2021 Assessment & Plan (1) Encounter for care and examination after delivery: Day 3 s/p LTCS doing well. Stable for discharge. Subjective Ambulation: ambulating normally Voiding: no voiding problems Passing Gas:: Yes Diet Tolerance:: regular diet Lochia:: Moderate Feeding Type:: breast feeding Physical Exam Constitutional WD/WN, vitals as above Respiratory normal respiratory effort; no respiratory distress and no labored breathing Gastrointestinal (Abdomen) Inspection/Auscultation: abdomen normal to inspection; abdomen not distended Percussion/Palpation: abdomen soft; abdomen nontender, no guarding and abdomen not rigid Incision C/D/I Genitourinary OB Exam Abdomen: + fundal height Fundus: + firm and + relation to umbilicus (Below); not tender or not boggy Results & Data ([facility]) Vital Signs (Past 12 Hours) Vital Signs Temp Pulse Resp BP Pulse Ox 08/09/21 08:00 36.9 C 95 H 20 128/88 98 08/09/21 07:00 36.9 C 81 15 125/82 98 08/08/21 23:30 36.7 C 76 18 121/76 97
[2021-08-09] MEDS: DOCUSATE SODIUM 100 MG CAP PO SCH (09:08)
[2021-08-09] MEDS: FERROUS SULFATE 325 MG TAB PO SCH (09:08)
[2021-08-09] MEDS: PRENATAL VITAMIN 1 TAB PO SCH (09:08)
[2021-08-09] MEDS: SIMETHICONE 80 MG CHEW PO SCH (09:08)
--- NOTE | 2021-08-10 13:39 | Discharge Summary ---
Date of Service August 10, 2021 Admission HPI Per Admitting Provider 35 y/o G1 at 39 wga presents w/ c/o ctx and LOF. +FM; denies VB. 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 Discharged home in goo d condition on POD#3 with usual plans for post op follow up in office. Coding Level of Care Code None Diagnoses Failure of descent in labor, delivered, current hospitalization O62.2
== END 2021-08-09 11:25 | disposition home or self-care (01) | DRG 788 ==
LOC: OPB 19:09 → 4S1 19:12 → 4E2 08-06 15:48

== ENCOUNTER 2023-02-14 06:59 | Inpatient (IN) ==
--- NOTE | 2023-02-05 10:13 | Anesthesiology Consultation ---
Date of Service February 05, 2023 Assessment & Plan (1) Encounter for pre-operative examination: - epidural 08/05/21 L3-L4 1 attempt. - Per patient assessment coordinator on 02/05/2023: No known infectious disease contacts, current infectious disease symptoms in past 10 days or COVID positive test result in the past 30 days. 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 Surgery Operation Date: 02/14/23 08:50 Proposed Procedures p Section (Delivery of Baby Through Abdominal Incision) - Aav Mcmillan MD s with Bilateral Tubal Ligation - Ava Mcmillan MD Height/Weight Height: 5 ft 2 in Weight: 81.647 kg Allergies Allergy/AdvReac Type Severity Reaction Status Date / Time minocycline Allergy Unknown Verified 02/05/23 09:34 Medications Home Medications Medication Instructions Recorded Confirmed Last Taken prenat.vits,sigifredo,[id number] 1 tab PO QAM 11/23/20 02/05/23 08/05/21 RSV vac, preF A and preF B(PF) 120 0.5 ml IM ONCE #1 ea 12/31/22 01/27/23 Unknown mcg/0.5 mL IM solution (Abrysvo) Past Medical History Medical History Hypercholesteremia History of chicken pox Pap smear of cervix shows high risk HPV present Mild cervical dysplasia Past Family History Family History Grandmother (Paternal) Colorectal cancer Father Heart disease Sister Endometriosis Jannet's thyroiditis Grandfather (Maternal) Myocardial infarction Grandfather (Paternal) Myocardial infarction Grandmother (Maternal) Thyroid disease Other Dyslipidemia Hypertension Denies family history of Ovarian cancer Breast cancer Past Surgical History Surgical History S/P section H/O colposcopy with cervical biopsy 2017 mona 1 History of tonsillectomy History of oral surgery Tooth extraction Social History Smoking Status: Former smoker Do You Dip or Chew Tobacco: No Hx Alcohol Use: No Hx Substance Use: No substance use type: does not use
[~2023-02-14 06:59] MED LIST: CITRIC ACID/SODIUM CITRATE 15 ML UDC PO SCH; ceFAZolin 2000MG 2,000 MG/15 ML SYR IV SCH
[2023-02-14] MEDS ORDERED: LACTATED RINGER'S 1,000 ML IV SCH ×2 (07:15→11:28)
--- NOTE | 2023-02-14 07:26 | History & Physical Report ---
Date of Service February 14, 2023 Assessment & Plan (1) Elderly multigravida: Plan: Plan for repeat section, tubal sterilization. Reviewed RBA, discussed consent. Questions answered. Admission and Anticipated Discharge Date Admission Date: February 14, 2023 History of Present Illness Chief Complaint: repeat section Primary Care Provider: Luly Antoine 37yo @ 39 07/17 here for scheduled repeat section and tubal sterilization. Previous --desires repeat desires TL C/S WITH TUBAL SCHEDULED FOR 02/14/[address] MICHAEL DOYLE Weekly NST's @ 36 weeks Has had covid vaccine Flu shot given 11/25/22 - [place] Allergies Allergy/AdvReac Type Severity Reaction Status Date / Time minocycline Allergy Unknown Verified 02/14/23 07:22 Home Medications Medication Instructions Recorded Confirmed Type prenat.vits,sigifredo,[id number] 1 tab PO QAM 11/23/20 02/14/23 History Patient History Medical History Hypercholesteremia History of chicken pox Pap smear of cervix shows high risk HPV present Mild cervical dysplasia Surgical History S/P section H/O colposcopy with cervical biopsy 2017 mona 1 History of tonsillectomy History of oral surgery Tooth extraction Family History Grandmother (Paternal) Colorectal cancer Father Heart disease Sister Endometriosis Jannet's thyroiditis Grandfather (Maternal) Myocardial infarction Grandfather (Paternal) Myocardial infarction Grandmother (Maternal) Thyroid disease Other Dyslipidemia Hypertension Denies family history of Ovarian cancer Breast cancer Social History Smoking Status: Former smoker Second Hand Exposure: No; Do You Dip or Chew Tobacco: No; Hx Alcohol Use: No Hx Substance Use: No Preferred Language: Kyrgyz Communication Ability: Effective Hearing Ability: Normal Radiology Transcriptionist Required: No Beliefs That Will Affect Care: None marital status: marital status details: Pb Noel(37) [phone] Current Living Situation: Spouse and Family Current Living Situation Comment: lives with spouse, child, cats-spouse changing litter current occupational status: employed current occupation: [employer] Feels Safe at Home: Yes Safety Concerns: Feels Safe At This Time Assistive Devices: Glasses Review of Systems All systems reviewed & are unremarkable except as noted in HPI & below Physical Exam Constitutional: WD/WN, vitals as above Respiratory: normal respiratory effort, lungs clear to auscultation no respiratory distress Cardiovascular: Rate/Rhythm: regular rate and regular rhythm Gastrointestinal (Abdomen): Inspection/Auscultation: abdomen normal to inspection Percussion/Palpation: abdomen soft; abdomen nontender Gravid. No s/s chorio or abruption. Skin: no rashes, warm and dry Psychiatric: A+Ox3, euthymic affect Results & Data Vital Signs (Past 12 Hours) Vital Signs Pulse BP 02/14/23 07:19 97 H 118/73 Code Status & VTE Plan VTE Prophylaxis Plan VTE Prophylaxis will be ordered: No Reason for no VTE drug order: Treatment not indicated Coding Level of Care Code None Diagnoses Elderly multigravida O09.529
[2023-02-14 07:34] LABS: Hematocrit (blood only) 39.2 % (37.0-47.0); Hemoglobin 13.1 g/dl (12.0-16.0); Mean Corpuscular Hemoglobin 29.2 pg (25.0-34.0); Mean Corpuscular Hgb Conc 33.4 g/dL (32.0-36.0); Mean Corpuscular Volume 87.5 fL (80.0-100.0); Mean Platelet Volume 9.9 fL (9.4-12.4); Platelet Count 183 K/uL (130-400); RDW Coefficient of Variation 13.3 % (11.5-14.5); RDW Standard Deviation 42.1 fL (36.4-46.3); Red Blood Count 4.48 M/uL (4.20-5.40); White Blood Count 9.08 K/ul (4.8-10.8)
[2023-02-14] MEDS ORDERED: OXYTOCIN 10 UNITS/ML VIAL ONE (08:26)
[2023-02-14] MEDS ORDERED: PHENYLEPHRINE 100MCG/ML 10ML SYR IV ONE (08:26)
[2023-02-14] MEDS ORDERED: ePHEDrine sulfate 50 MG/5 ML SYR ONE (08:26)
[2023-02-14] MEDS ORDERED: ONDANSETRON INJ 2 MG/ML 2 ML VIAL ONE (08:26)
[2023-02-14] MEDS ORDERED: fentaNYL citrate PF 100 MCG/2 ML VIAL ONE (08:27)
[2023-02-14] MEDS ORDERED: MoRPHine SULFATE PF 1 MG/ML 10 ML AMP/VIAL ONE (08:27)
[2023-02-14] MEDS ORDERED: NALOXONE HCL 0.08 MG in SYRINGE 1.8 ML IV PRN (10:09)
[2023-02-14] MEDS ORDERED: LACTATED RINGER'S 500 ML IV PRN (10:09)
[2023-02-14] MEDS ORDERED: HYDROmorphone INJ 0.5 MG/0.5 ML SYR IV PRN (10:09)
[2023-02-14] MEDS ORDERED: NALBUPHINE HCL 5 MG in SYRINGE 0 ML IV PRN (10:09)
[2023-02-14] MEDS ORDERED: diphenhydrAMINE 50 MG/ML VIAL IV PRN (10:09)
[2023-02-14] MEDS ORDERED: MoRPHine SULFATE PF 1 MG/ML 10 ML AMP/VIAL INT SPINAL ONE (10:09)
[2023-02-14] MEDS ORDERED: NALOXONE HCL 0.4 MG/1 ML VIAL/CARP IV PRN (10:09)
[2023-02-14] MEDS ORDERED: ePHEDrine sulfate 50 MG/ML AMP IV PRN (10:09)
[2023-02-14] MEDS ORDERED: NALOXONE HCL 1 MG in SODIUM CHLORIDE 0.9% 1,000 ML IV PRN (10:09)
[2023-02-14] MEDS ORDERED: PROMETHAZINE HCL 6.25 MG in SODIUM CHLORIDE 0.9% 50 ML IV PRN (10:09)
[2023-02-14] MEDS ORDERED: DC INTRASPINAL MORPHINE SCH (10:15)
[2023-02-14] MEDS ORDERED: NO NARCOTICS OR SEDATIVES SCH (10:15)
[2023-02-14] MEDS ORDERED: SODIUM CHLORIDE 0.9% 1,000 ML IV SCH (10:15)
[2023-02-14 10:40] LABS: Base Excess Cord Venous Blood -1.2 mEq/L (-7.7-1.9); Cord Venous Blood HCO3 26 mmol/L (18.4-26.8); Cord Venous Blood PCO2 51 mmHg (30.4-57.2); Cord Venous Blood PO2 26 mmHg (14.1-43.3); Cord Venous Blood pH 7.31 (7.20-7.44); O2 Saturation Cord Venous Bld < 60.0 % (<68)
--- NOTE | 2023-02-14 11:18 | Operative Report ---
PG Post Operative Report Pre & Post Diagnosis Operation Date: 02/14/23 08:50 Pre-Op Diagnosis: History of Previous Caesarean Section x 1; Desires Sterilization Post-Op Diagnosis: Same; Delivery of a live female child at 1020 I identified the patient and participated in the time-out.: Yes Procedure Operation Date: 02/14/23 08:50 Actual Procedures p Repeat low transverse Section - Delilah Gonzalez DO s with Bilateral Tubal Ligation(Bilateral) - Delilah Gonzalez DO Surgeon Delilah Gonzalez DO Cost Accounting Clerk Grace Cortés RN Estimated Blood Loss 600 Findings Consistent with Post-Op Diagnosis Viable female Apgars 8/9, Weight 8#7. Normal appearing uterus, tubes, ovaries. Specimens Placenta, cord blood, cord gas, bilateral fallopian tubes. Drains michelle clear yellow Anesthesia Type Spinal Complications none Disposition Accompanied Patient To Recovery: No Disposition: L&D Indications 37yo @ 39 6/7, history of section, desire for repeat and permanent tubal sterilization. Description of Procedure The patient was seen in her labor and delivery room, risks benefits and alternatives to surgery were reviewed. Informed consent obtained. Questions were answered. She was taken to the operating room, spinal anesthesia was administered. She was then prepared and draped in the usual sterile fashion in the supine position with a leftward tilt. Timeout was confirmed. A Pfannenstiel skin incision was made with a scalpel, and carried through to the underlying layer of fascia. Fascia was nicked at midline, and this incision was extended bilaterally. The superior aspect of the fascial incision was grasped with Jeremy clamps x2, elevated off the underlying rectus abdominis muscles, and dissected sharply and bluntly. In similar fashion, the inferior aspect of the fascial incision was dissected. The rectus abdominis muscles were , and the peritoneum was entered bluntly digitally. This was extended bilaterally. The bladder flap was taken down carefully using Metzenbaum scissors. Using a new scalpel, a low transverse uterine incision was created. Clear amniotic fluid noted. The infant was delivered from a cephalic presentation. The head delivered, followed by shoulders and body. Spontaneous cry on the field. The cord was doubly clamped and cut, and the infant was handed off to the waiting wood model builder. A segment was retained for cord gases. Cord blood was obtained. The placenta was delivered spontaneously intact. The uterus was exteriorized, and cleared of all clots and debris. The hysterotomy incision was reapproximated using 0 Vicryl in a running locked stitch. A second layer of the same suture was used to imbricate the incision. Posterior uterus was evaluated and normal. The right fallopian tube was identified to its fimbria, grasped with a jace clamp and coagulated/transected from its mesosalpinx and and uterus using Ligasure device. In a similar fashion, left fallopian tube was transected. The uterus was returned to the abdomen, and gutters were cleared of clots and debris. Excellent hemostasis was observed. The fascial incision was reapproximated using 0 Vicryl in a running stitch. The subcutaneous tissue was irrigated, and reapproximated using 2-0 plain gut in a running stitch. The skin was reapproximated using 4-0 Vicryl in a running subcuticular stitch. Steri-Strips and a bandage were applied. The patient tolerated the procedure well, and will be taken to the recovery area in stable and good condition. I attest to the content of the Intraoperative Record and any orders documented therein. Any exceptions are noted below. OB Procedure Charges [id number] Add on Tubal for C/S
--- NOTE | 2023-02-14 11:18 | Anesthesia Procedure Note ---
Date of Service February 14, 2023 Anesthesia Post Epidural Note Vital Signs Vital Signs: Temp Pulse Resp BP Pulse Ox 37.0 C 79 20 106/50 L 98 02/14/23 07:19 02/14/23 11:13 02/14/23 07:19 02/14/23 11:13 02/14/23 11:13 Notes Mental Status: alert / awake / arousable and participated in evaluation Nausea / Vomiting: adequately controlled Pain: adequately controlled Airway Patency, RR, SpO2: stable & adequate BP & HR: stable & adequate Hydration State: stable & adequate Neuraxial Anesthesia: was administered and sensory block is resolving Anesthetic Complications: no major complications apparent and Pt Satisfied with anesthetic care Epidural: Removed without complications and With tip intact
[2023-02-14] MEDS ORDERED: SENNA 8.6 MG TAB PO PRN (11:28)
[2023-02-14] MEDS ORDERED: HYDROCORTISONE ACETATE 25 MG SUPP PR PRN (11:28)
[2023-02-14] MEDS ORDERED: DIPHTHERIA/TETANUS/PERTUSSIS Vaccine (Tdap, Age 7+yrs) 0.5mL SYR/VL IM ONE (11:28)
[2023-02-14] MEDS ORDERED: MAGNESIUM HYDROXIDE SUSP 30 ML UDC PO PRN (11:28)
[2023-02-14] MEDS ORDERED: BENZOCAINE 20% SPRY 85 APPLN/85 GM CAN EXT PRN (11:28)
[2023-02-14] MEDS: SIMETHICONE 80 MG CHEW PO SCH ×3 (12:52→19:18)
[2023-02-14] MEDS: ONDANSETRON INJ 2 MG/ML 2 ML VIAL IV PRN ×2 (12:55→19:17)
[2023-02-14] MEDS: OXYTOCIN 30 UNITS/LR 1,003 ML IV SCH ×2 (12:55→20:28)
[2023-02-14] MEDS: KETOROLAC 30 MG/ML VIAL IV PRN ×2 (13:25→19:17)
[2023-02-14] MEDS: DOCUSATE SODIUM 100 MG CAP PO SCH (20:28)
[2023-02-15] MEDS ORDERED: ONDANSETRON INJ 2 MG/ML 2 ML VIAL IV PRN (04:10)
[2023-02-15] MEDS ORDERED: PROMETHAZINE HCL 25 MG in SODIUM CHLORIDE 0.9% 50 ML IV PRN (04:10)
[2023-02-15] MEDS ORDERED: KETOROLAC 30 MG/ML VIAL IV PRN (04:10)
[2023-02-15] MEDS ORDERED: diphenhydrAMINE Capsule 25 MG CAP PO PRN (04:10)
[2023-02-15] MEDS ORDERED: diphenhydrAMINE 50 MG/ML VIAL IV PRN (04:10)
[2023-02-15] MEDS: IBUPROFEN 600 MG TAB PO PRN ×5 (05:03→23:57)
[2023-02-15] MEDS: oxyCODONE/ACETAMINOPHEN 5mg/325mg TAB PO PRN ×4 (05:03→23:56)
[2023-02-15] MEDS ORDERED: CITRIC ACID/SODIUM CITRATE 15 ML UDC PO SCH (06:00)
--- NOTE | 2023-02-15 07:35 | Obstetrical Progress Note ---
Date of Service February 15, 2023 Assessment & Plan (1) Encounter for care and examination after delivery: satisfactory post-op and recovery continue current care plan Subjective Ambulation: ambulating normally Voiding: no voiding problems Passing Gas:: Yes Diet Tolerance:: regular diet Lochia:: Moderate Feeding Type:: breast feeding has been up to void twice already- pain meds working well Review of Systems All systems reviewed & are unremarkable except as noted in HPI & below Physical Exam Constitutional WD/WN, vitals as above Psychiatric A+Ox3, euthymic affect Genitourinary OB Exam Abdomen: + fundal height Fundus: + firm and + relation to umbilicus (1 below) dressing removed - incision dry and intact Results & Data Vital Signs (Past 12 Hours) Vital Signs Temp Pulse Resp BP Pulse Ox Pulse Ox O2 Del Method 02/15/23 05:00 18 98 02/15/23 04:59 98.1 F 86 18 104/69 98 Room Air 02/15/23 04:00 18 96 02/15/23 03:00 16 96 02/15/23 02:00 16 95 02/15/23 01:00 18 96 02/15/23 00:00 18 96 02/14/23 23:11 98.4 F 82 18 104/66 96 Room Air 02/14/23 23:00 18 96 02/14/23 22:00 16 96 02/14/23 21:00 18 95 02/14/23 20:34 99 02/14/23 20:00 18 98 O2 Del Method 02/15/23 05:00 02/15/23 04:59 02/15/23 04:00 02/15/23 03:00 02/15/23 02:00 02/15/23 01:00 02/15/23 00:00 02/14/23 23:11 02/14/23 23:00 02/14/23 22:00 02/14/23 21:00 02/14/23 20:34 Room Air 02/14/23 20:00
[2023-02-15] MEDS: PRENATAL VITAMIN 1 TAB PO SCH (08:03)
[2023-02-15] MEDS: FERROUS SULFATE 325 MG TAB PO SCH (08:03)
[2023-02-15] MEDS: DOCUSATE SODIUM 100 MG CAP PO SCH ×2 (08:03→19:56)
[2023-02-15] MEDS: SIMETHICONE 80 MG CHEW PO SCH ×4 (08:03→19:57)
[2023-02-15 08:54] LABS: Basophils # (auto) 0.03 K/uL (0.00-0.20); Basophils % (auto) 0.2 %; Eosinophils # (auto) 0.07 K/uL (0.00-0.50); Eosinophils % (auto) 0.6 %; Hematocrit (blood only) 36.3 % (37.0-47.0); Hemoglobin 11.9 g/dl (12.0-16.0); Immature Granulocytes # (auto) 0.07 K/uL (0.01-0.20); Immature Granulocytes % (auto) 0.6 %; Lymphocytes # (auto) 1.34 K/uL (1.20-3.40); Lymphocytes % (auto) 10.9 %; Mean Corpuscular Hemoglobin 28.7 pg (25.0-34.0); Mean Corpuscular Hgb Conc 32.8 g/dL (32.0-36.0); Mean Corpuscular Volume 87.5 fL (80.0-100.0); Mean Platelet Volume 9.6 fL (9.4-12.4); Monocytes % (auto) 5.7 %; Neutrophils # (auto) 10.04 K/uL (1.40-6.50); Platelet Count 176 K/uL (130-400); RDW Coefficient of Variation 13.2 % (11.5-14.5); Red Blood Count 4.15 M/uL (4.20-5.40); White Blood Count 12.25 K/ul (4.8-10.8)
[2023-02-15] MEDS ORDERED: bisacodyL 5 MG TABEC PO SCH (20:00)
[2023-02-16] MEDS: IBUPROFEN 600 MG TAB PO PRN ×5 (04:05→21:19)
[2023-02-16] MEDS: oxyCODONE/ACETAMINOPHEN 5mg/325mg TAB PO PRN ×5 (04:05→21:19)
[2023-02-16 07:10] LABS: Hematocrit (blood only) 36.9 % (37.0-47.0); Hemoglobin 11.9 g/dl (12.0-16.0)
[2023-02-16] MEDS: FERROUS SULFATE 325 MG TAB PO SCH (08:04)
[2023-02-16] MEDS: PRENATAL VITAMIN 1 TAB PO SCH (08:04)
[2023-02-16] MEDS: DOCUSATE SODIUM 100 MG CAP PO SCH ×2 (08:04→21:19)
[2023-02-16] MEDS: SIMETHICONE 80 MG CHEW PO SCH ×4 (08:04→21:19)
--- NOTE | 2023-02-16 08:39 | Obstetrical Progress Note ---
Date of Service February 16, 2023 Assessment & Plan (1) Encounter for care and examination after delivery: Status post repeat . Patient doing well and is stable for discharge if preferred. Subjective Ambulation: ambulating normally Voiding: no voiding problems Passing Gas:: Yes Diet Tolerance:: regular diet Lochia:: Moderate Feeding Type:: breast feeding Denies calf tenderness Physical Exam Constitutional WD/WN, vitals as above Respiratory normal respiratory effort; no respiratory distress and no labored breathing Gastrointestinal (Abdomen) Inspection/Auscultation: abdomen normal to inspection; abdomen not distended Percussion/Palpation: abdomen soft; abdomen nontender, no guarding and abdomen not rigid Incision clean, dry and intact. Genitourinary OB Exam Abdomen: + fundal height Fundus: + firm and + relation to umbilicus (Below); not tender or not boggy Results & Data Vital Signs (Past 12 Hours) Vital Signs Temp Pulse Resp BP Pulse Ox O2 Del Method 02/15/23 23:14 36.5 C 78 18 115/73 97 Room Air
[2023-02-16] MEDS ORDERED: bisacodyL 10 MG SUPP PR PRN (11:13)
[2023-02-17] MEDS: IBUPROFEN 600 MG TAB PO PRN (04:34)
[2023-02-17] MEDS: oxyCODONE/ACETAMINOPHEN 5mg/325mg TAB PO PRN (04:35)
--- NOTE | 2023-02-17 06:47 | Obstetrical Progress Note ---
Date of Service <Nella Camacho MD - Last Filed: 02/17/23 07:13> February 17, 2023 Assessment & Plan <Nella Camacho MD - Last Filed: 02/17/23 07:13> (1) Encounter for care and examination after delivery: Patient with the above mentioned history and findings was evaluated at bedside and found awake, alert, oriented in all spheres, afebrile, and in no acute distress. Vital signs showed no fever and blood pressures remained stable. Her blood type is B positive and most recent hemoglobin is adequate at 11.9 g/dL. She is GBS negative and rubella immune. Overall, patient is doing well clinically and is meeting the desired milestones for her pp recovery. Therefore, will discharge today. Discharge instructions discussed. She is to make an appointment with her OB for 6 weeks after discharge for follow up evaluation. All questions were answered. <Randy Webb MD - Last Filed: 02/17/23 07:41> (1) Encounter for care and examination after delivery: Subjective <Nella Camacho MD - Last Filed: 02/17/23 07:13> Liss is a 37 y/o female who is POD #3 following rLTCS with Tubal Ligation at 39 6/7 weeks. Refers mild abdominal cramping & 3/10 pain well managed on analgesics. Voiding spontaneously. Has passed flatus but no bowel movements yet. Tolerating meals overnight and able to ambulate some. Some persistent lochia with some improvement this morning. without difficulty. Constitutional: no fever, no chills or no sweats Denies shortness of breath or difficulty breathing. Cardiovascular: no chest pain or no palpitations Breast: no breast pain Genitourinary (female): no dysuria Neurologic: no headache(s) Denies changes in vision. Physical Exam <Nella Camacho MD - Last Filed: 02/17/23 07:13> General: Alert. Oriented to person, time, and place. Afebrile. No acute distress. Eyes: pupils equal and reactive to light bilaterally, extraocular movements intact. Cardiac: Regular rate and rhythm, no murmurs/rubs/gallops. Respiratory: Clear to auscultation bilaterally, no wheezes/rales/rhonchi. No increased work of breathing. Symmetrical chest rise. No respiratory distress. Abdomen: Soft, nontender, nondistended. Bowel sounds present. Low transverse surgical scar clean, without surrounding erythema or suppuration, and healing well. Uterus: Uterine fundus firm, mildly tender, and palpable below umbilicus. Lower Extremities: No lower extremity edema or swelling. No deep calf pain. Chun's negative bilaterally. Psych: Euthymic affect. Mood and affect congruence. Regular speech rate and content. Results & Data <Nella Camacho MD - Last Filed: 02/17/23 07:13> Vital Signs (Past 12 Hours) Vital Signs Temp Pulse Resp BP Pulse Ox O2 Del Method 02/16/23 23:24 36.6 C 74 18 120/69 98 Room Air 02/16/23 19:12 36.6 C 76 18 114/74 99 Room Air Supervising Physician <Randy Webb MD - Last Filed: 02/17/23 07:41> Co-Signing Physician Notes Patient seen with resident and agree with the above findings and plan. Stable for discharge Resident Activity Tracking <Nella Camacho MD - Last Filed: 02/17/23 07:13> Resident Involvement: Resident Care Provided Care Provided: OB Delivery
[2023-02-17] MEDS: SIMETHICONE 80 MG CHEW PO SCH ×2 (07:52→13:00)
[2023-02-17] MEDS: PRENATAL VITAMIN 1 TAB PO SCH (07:53)
[2023-02-17] MEDS: FERROUS SULFATE 325 MG TAB PO SCH (07:53)
[2023-02-17] MEDS: DOCUSATE SODIUM 100 MG CAP PO SCH (07:53)
== END 2023-02-17 14:30 | disposition home or self-care (01) | DRG 785 ==
LOC: 4S1 06:59 → EDSTATUS 08:50 → 4E2 13:27
PROC: M.PPTLD (2023-02-14 08:50)